=== PATIENT | female | born 2000 | race Two or more races ===

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

== ENCOUNTER 2022-08-14 23:29 | Emergency (ER) | payer SELFPAY ==
--- NOTE | 2022-08-14 23:36 | ED Physician Documentation ---
PD HPI ALTERED MENTAL STATUS - Stated complaint Stated Complaint: ETOH - History obtained from History obtained from: EMS - Additional information Additional information: HPI from EMS; patient is able to provide minimal HPI/ROS due to AMS. Patient was at a constitution party tonight with friends who called 911 due to patient becoming increasing altered, likely due to alcohol intake. No report of injury or fall. Patient is vomiting on arrival to ED. She is awake enough to indicate she has been drinking alcohol heavily and that she did not sustain any injury. She c/o nausea. Review of Systems GI: reports: Nausea, Vomiting. denies: Abdominal Pain : denies: Now [facility] PD PAST MEDICAL HISTORY - Past Medical History Past Medical History: No - Allergies Allergies/Adverse Reactions: Allergies Allergy/AdvReac Type Severity Reaction Status Date / Time No Known Drug Allergies Allergy Verified 08/15/22 00:25 PD ED PE NORMAL - Vitals Vital signs reviewed: Yes - General General: Well developed/nourished, Other (drowsy, wakens to voice although does not open eyes (unless prompted to do so, and then briefly), follows simple commands, vomits at times during brief H+P) - HEENT HEENT: Atraumatic, PERRL, EOMI - Neck Neck: Supple, no meningeal sign - Cardiac Cardiac: RRR, No murmur - Respiratory Respiratory: No respiratory distress, Clear bilaterally - Abdomen Abdomen: Soft, Non tender Results - Vitals Vitals: Oxygen O2 Source Room air - Labs Labs: Laboratory Tests 08/14/22 08/14/22 23:40 23:40 WBC 13.4 H RBC 4.58 Hgb 14.0 Hct 41.8 MCV 91.3 MCH 30.6 MCHC 33.5 RDW 12.7 Plt Count 292 MPV 10.3 Neut # (Auto) Not Reportable Lymph # (Auto) Not Reportable [place] # (Auto) Not Reportable Eos # (Auto) Not Reportable Baso # (Auto) Not Reportable Absolute Nucleated RBC Not Reportable Total Counted 100 Band Neuts % (Manual) 0 Abnorm Lymph % (Manual) 0 Nucleated RBC % Not Reportable Neutrophils # (Manual) 7.1 H Lymphocytes # (Manual) 5.9 H Monocytes # (Manual) 0.4 Eosinophils # (Manual) 0.0 Basophils # (Manual) 0.0 Differential Comment MANUAL DIFFERENTIAL Platelet Estimate NORMAL (130-450,000) RBC Morph Micro Appear NORMAL APPEARANCE Sodium 141 Potassium 3.2 L Chloride 107 Carbon Dioxide 24 Anion Gap 10.0 BUN 13 Creatinine 0.7 Estimated GFR (MDRD) 107 Glucose 122 H Calcium 10.0 Total Bilirubin 0.5 AST 20 ALT 15 Alkaline Phosphatase 53 Total Protein 8.5 H Albumin 4.6 Globulin 3.9 Albumin/Globulin Ratio 1.2 Lipase 40 Ethyl Alcohol 248.8 PD Medical Decision Making - ED course Complexity details: reviewed results, re-evaluated patient, considered differential, d/w patient ED course: AMS due to ethanol intoxication. Held in ED for a few hours for observation and , during this time, she gradually became more awake and alert. On reevaluation prior to d/c, she is AAOx3, GCS 15, smiling at times during reevaluation. She again admits to drinking alcohol at a [employer] party last night rather heavily. Results d/w patient including serum ethanol level of 248.8. I explained to her that this was a very high alcohol level and advised her to avoid alcohol in general (and at least until she is of legal drinking age in particular). During ED stay, she is given 1 liter NS IV , 4mg IV zofran x 2 doses, and take- home pack of zofran Departure - Departure Disposition: 01 Home, Self Care Clinical Impression: Hypokalemia Alcohol intoxication Qualifiers: Complication of substance-induced condition: uncomplicated Qualified Code(s): F10.920 - Alcohol use, unspecified with intoxication, uncomplicated Condition: Good Instructions: ED Alcohol Intoxication, ED Potassium Deficiency Comments: There were no concerning findings on the blood test except for a potentially elevated blood alcohol level. An incidental note is made of a slightly low potassium level. This is not low enough to cause any symptoms nor concern, but you should mention this to your primary care provider the next time you see them, as they might recommend repeating the level in the coming weeks to make sure it is back into a normal range. Your potassium level was 3.2 tonight (the low end of normal range is 3.5). Discharge Date/Time: 08/15/22 03:12
[2022-08-14] MEDS ORDERED: SODIUM CHLORIDE 0.9% 1,000 ML IV STA (23:37)
[2022-08-14] MEDS ORDERED: ONDANSETRON 4 MG/2 ML VIAL IVP STA (23:37)
[2022-08-14 23:47] LABS: BASOPHILS % (AUTO) 0.5 %; EOSINOPHILS % (AUTO) 0.6 %; HCT - HEMATOCRIT 41.8 % (37.0-47.0); MEAN CORPUSCULAR HEMOGLOBIN 30.6 pg (27.0-31.0); MEAN CORPUSCULAR HGB CONC 33.5 g/dL (32.0-36.0); MEAN CORPUSCULAR VOLUME 91.3 fL (81.0-99.0); MEAN PLATELET VOLUME 10.3 fL (7.9-10.8); MONOCYTES % (AUTO) 5.3 %; NEUTROPHILS % (AUTO) 57.2 %; PLT - PLATELET COUNT 292 10^3/uL (130-450); RED BLOOD COUNT 4.58 10^6/uL (4.20-5.40); RED CELL DISTRIBUTION WIDTH 12.7 % (12.0-15.0); WHITE BLOOD COUNT 13.4 x10^3/uL (4.8-10.8)
[2022-08-14 23:54] LABS: ABNORMAL LYMPHS % (MANUAL) 0 %; BAND NEUTROPHILS % (MANUAL) 0 %
[2022-08-15 00:08] LABS: DIFFERENTIAL COMMENT MANUAL DIFFERENTIAL; LYMPHOCYTES # (MANUAL) 5.9 10^3/uL (1.5-3.5); LYMPHOCYTES % (MANUAL) 44 %; MONOCYTES # (MANUAL) 0.4 10^3/uL (0.0-1.0); NEUTROPHILS # (MANUAL) 7.1 10^3/uL (1.5-6.6); PLATELET ESTIMATE, MANUAL NORMAL (130-450,000) (NORMAL); RBC MORPHOLOGY (MULTIPLE) NORMAL APPEARANCE (NORMAL)
[2022-08-15 00:09] LABS: ALBUMIN 4.6 g/dL (3.2-5.5); ALBUMIN/GLOBULIN RATIO 1.2 (1.0-2.2); BILIRUBIN,TOTAL 0.5 mg/dL (0.2-1.0); CREATININE 0.7 mg/dL (0.4-1.0); ETOH - ETHANOL 248.8 mg/dL; POTASSIUM 3.2 mmol/L (3.5-5.0); TOTAL PROTEIN 8.5 g/dL (6.7-8.2)
[2022-08-15 02:39] VITALS: BP 109/85
[2022-08-15] MEDS ORDERED: ONDANSETRON 4 MG/2 ML VIAL IVP STA (02:52)
[2022-08-15] MEDS ORDERED: ONDANSETRON ODT 4 MG Prepack 2 TL PRN (02:53)
== END 2022-08-15 03:12 | disposition home or self-care (01) ==
LOC: EDBD → MERGE 23:29 → ED 23:29
DX: F10.120 Alcohol abuse with intoxication, uncomplicated (principal); Y90.8 Blood alcohol level of 240 mg/100 ml or more; E87.6 Hypokalemia
CPT/HCPCS: 36415; 80053; 80320; 83690; 85025; 96361; 96374; 96376; 99283